=== PATIENT | female | born 2000 | race Two or more races ===

== ENCOUNTER 2024-04-07 17:28 | Emergency (ER) | payer MEDICAID ==
[~2024-04-07] VITALS: Ht 154.9 cm; Wt 81.6 kg
[2024-04-07 17:30] VITALS: BP 148/86; TEMP 98.2; O2SAT 100
[2024-04-07] MEDS ORDERED: IBUP-1490 PO (18:52)
[2024-04-07] MEDS ORDERED: IBUPROFEN 600 MG TABLET ONE (18:56)
[2024-04-07] MEDS: IBUPROFEN 600 MG TABLET PO ONE (19:00)
== END 2024-04-07 19:38 | disposition home or self-care (01) ==
LOC: ER 17:42
DX: S82.891A Other fracture of right lower leg, initial encounter for closed fracture (principal); W18.49XA Other slipping, tripping and stumbling without falling, initial encounter; Y93.01 Activity, walking, marching and hiking; Y92.89 Other specified places as the place of occurrence of the external cause; Y99.8 Other external cause status
CPT/HCPCS: 73610-TC